=== PATIENT | female | born 1995 | race Caucasian/White ===

== ENCOUNTER 2023-08-28 16:51 | Emergency (ER) | payer OTHER, SELFPAY ==
--- NOTE | 2023-08-28 17:04 | ED.BACK ---
HPI - Back Pain/Injury General Chief Complaint: Back Pain/Injury Stated Complaint: Lower Back Pain Time Seen by Provider: 08/28/23 17:08 Source: patient, RN notes reviewed and old records reviewed Mode of arrival: ambulatory Limitations: no limitations History of Present Illness HPI Narrative: 27-year-old female presents to the [facility] with left lower back pain. Patient reports that she was seen at [facility] according to medical record August 13. Was prescribed muscle relaxers and anti-inflammatories. Had had back pain for approximately 9 days after doing box jumps as a workout. Patient denies any abdominal pain. Denies any midline tenderness. Did show from her my chart x-ray was negative at that time Denies any loss retention of bowel or bladder. Walks with a semi normal gait favoring left side. Sciatic joint tenderness No erythema, ecchymosis noted. No swelling noted Patient at that time had received Toradol, prednisone and a muscle relaxer Patient reports she has an appointment with a new PCM on the 16 of September Onset (ago): week(s) Related Data Home Medications Medication Instructions Recorded Confirmed lisdexamfetamine 40 mg capsule 40 mg DIRECTED 08/28/23 08/28/23 (Vyvanse) Allergies Allergy/AdvReac Type Severity Reaction Status Date / Time No Known Allergies Allergy Unverified 03/24/17 16:10 Review of Systems Review of Systems: All systems reviewed & are unremarkable except as noted in HPI and below Constitutional: Constitutional: Reports no additional constitutional complaints Eyes: Eyes: Reports no additional eye complaints ENT: Reports system reviewed and no additional complaints, except as documented Cardiovascular: Cardiovascular: Reports no additional cardiovascular complaints, Denies chest pain and Denies dyspnea Respiratory: Respiratory: Reports no additional respiratory complaints, Denies chest congestion, Denies cough and Denies dyspnea Gastrointestinal: Gastrointestinal: Reports no additional gastrointestinal complaints, Denies abdominal pain, Denies nausea and Denies vomiting Musculoskeletal: Musculoskeletal: Reports as per HPI and Reports back pain (Left lower) Integumentary/Breasts: Skin/Breast: Reports system reviewed and no additional complaints, except as docu Neurologic: Reports system reviewed and no additional complaints, except as documented Psychiatric: Psychiatric: Reports no additional psychiatric complaints Allergic/Immunologic: Allergic/Immunologic: Reports no additional allergic/immunologic complaints PMFSH Comments At the time of my signature, I reviewed and agree with the nursing past medical, surgical, social, and family history. There is no relevant family history pertinent to the patient complaint. Exam Const: General: cooperative, healthy appearing, comfortable, no acute distress, well developed, alert and well nourished Nutritional Appearance: well nourished Orientation/consciousness: patient oriented x3 Limitations: no limitations HENMT: Head: normal to inspection Ears: hearing grossly normal bilaterally and external ears normal Face/Nose/Sinus: Normal external nose present, Normal nares present, Normal nasal mucous membranes and turbinates present, normal facial exam and face symmetric Face and sinus: normal facial exam and face symmetric Eyes: General: appearance normal, both eyes and all related structures Alignment and Position: alignment normal Periorbital: periorbital findings normal Pupils: Equal, round and reactive pupils present EOM: EOMs intact bilaterally Neck: Neck: normal visual inspection, full ROM, no lymphadenopathy and no meningeal signs Chest: Chest palpation & inspection: normal inspection of the chest Resp: Effort & Inspection: normal respiratory effort and able to speak in complete sentences Cardio: Rate: regular rate Rhythm: regular rhythm GI: GI Palp: No abdominal tenderness Back/Spine/Pelvis: Back: no C
[2023-08-28 17:08] VITALS: BP 141/97; PULSE 104; RESP 16; TEMP 36.4; O2SAT 100
[2023-08-28 17:10] VITALS: BP 141/97; PULSE 104; RESP 16; TEMP 36.4; O2SAT 100
== END 2023-08-28 17:30 | disposition home or self-care (01) ==
PROVIDERS: Emergency Provider Nurse Practitioner; PCP Nurse Practitioner Family
DX: M54.42 Lumbago with sciatica, left side (principal); F90.9 Attention-deficit hyperactivity disorder, unspecified type
CPT/HCPCS: 99213; G0463

== ENCOUNTER 2024-12-13 07:20 | Outpatient (CLI) | payer BC, SELFPAY ==
--- NOTE | ~2024-12-13 | MR_ITS ---
EXAMINATION: MR lumbar spine wo con DATE: 12/13/2024 07:47 INDICATION: Lumbago TECHNIQUE: Magnetic resonance imaging (MRI) of the lumbar spine was performed without intravenous con trast. Sequences included sagittal T2-weighted FSE, sagittal T2-weighted FS FSE, sagittal T1-weighted FSE, and axial T2-weighted FSE. COMPARISON: None FINDINGS: Alignment is normal. Chronic appearing mild likely physiologic anterior wedging of T12 with 20% anter ior vertebral body height loss. Lumbar vertebral body heights are normal. Disc desiccation and mild t o moderate disc height loss at L5-S1 with Modic type I fibrovascular degenerative endplate changes al flavia the inferior endplate of T12. Bone marrow signal is otherwise normal. Additional mild disc height loss at T11-T12 and T12-L1 and minimally at L1-L2 and L2-L3. The conus medullaris terminates at L1-L 2. There is normal signal in the caudal spinal cord. Paravertebral soft tissues are unremarkable. The following disc levels are specifically discussed: T12-L1: Annular fissure and small right paracentral disc extrusion with disc material extending coupl e millimeter caudal to the level of the superior endplate of T12. There is mild bilateral facet joint osteoarthritis. There is no neural foraminal stenosis. There is minimal central canal stenosis. L1-L2: The disc does not extend beyond the endplate margin. There is mild bilateral facet joint osteo arthritis. There is no neural foraminal stenosis. There is no central canal stenosis. L2-L3: The disc does not extend beyond the endplate margin. There is mild bilateral facet joint osteo arthritis. There is no neural foraminal stenosis. There is no central canal stenosis. L3-L4: The disc does not extend beyond the endplate margin. There is mild to moderate bilateral facet joint osteoarthritis. There is minimal bilateral neural foraminal stenosis. There is no central tonie l stenosis. L4-L5: Disc is mildly bulging. There is mild left and mild to moderate right facet joint osteoarthrit is. There is mild bilateral neural foraminal stenosis. There is mild central canal stenosis. L5-S1: Disc is bulging with superimposed annular fissure and central disc extrusion with disc materia l extending up to 4 mm caudal to the level of the superior endplate of S1. There is mild right and mi ld to moderate left facet joint osteoarthritis. There is mild left and mild to moderate right neural foraminal stenosis. There is mild central canal stenosis with narrowing of the lateral recesses, mild on the left and mild to moderate on the right. IMPRESSION: 1. Mild to moderate spondylosis at L5-S1 with minimal to mild spondylosis in the more cephalad lumbar and lower thoracic spine. Reviewed, dictated and finalized at location A. IMPRESSION: 1. Mild to moderate spondylosis at L5-S1 with minimal to mild spondylosis in th e more cephalad lumbar and lower thoracic spine.
== END 2024-12-13 07:21 | disposition home or self-care (01) ==
LOC: MICIMG 07:21
PROVIDERS: PCP Nurse Practitioner Family; Visit Provider Nurse Practitioner Family
DX: M47.896 Other spondylosis, lumbar region (principal)
CPT/HCPCS: 72148